=== PATIENT | male | born 1950 | race Caucasian/White ===

== ENCOUNTER 2016-12-09 17:15 | Emergency (ER) | payer OTHER ==
[~2016-12-09] VITALS: Ht 182.9 cm; Wt 100.0 kg
[2016-12-09 17:21] VITALS: BP 104/52; PULSE 73; RESP 19; O2SAT 95
[2016-12-09] MEDS ORDERED: RANI300C PO (17:27)
[2016-12-09] MEDS ORDERED: LORA10CA PO (17:27)
[2016-12-09] MEDS ORDERED: ASPI325T32 PO (17:27)
[2016-12-09] MEDS ORDERED: CARV25TA2 PO (17:27)
[2016-12-09] MEDS ORDERED: DICY20TA10 PO (17:27)
[2016-12-09] MEDS ORDERED: LISI-567 PO (17:27)
[2016-12-09] MEDS ORDERED: ESOM40CA41 PO (17:27)
[2016-12-09] MEDS ORDERED: PRV40T PO (17:27)
[2016-12-09] MEDS ORDERED: ALBU8.5H2 INHALATION (17:27)
[2016-12-09] MEDS ORDERED: HYOS0.1216 PO (17:27)
[2016-12-09] MEDS ORDERED: MONT10TA20 PO (17:27)
[2016-12-09] MEDS ORDERED: BUPR150T12 PO (17:27)
--- NOTE | 2016-12-09 17:32 | ED.REPORT ---
HPI-General Illness Date of Service December 09, 2016 ED Provider: Claude Young MD 66 y/o male with a hx of HTN and hyperlipidemia presents to the complaining of dizziness, onset 3 hours ago. The pt believes he may have doubled up on his BP medication. Typically, he takes his medication twice a day. He could not remember if he had taken his first dose so he took another dose a couple of hours after the second dose, which is when his sx began. The pt states he got up to get mail when he started feeling lightheaded and experienced blurry vision. He put his hands on the jaquez and fell to his knees. He recorded his BP at 78/42 and at 80/52 a few minutes later.The pt states he still feels "sluggish " and will fill dizzy and lightheaded if he were to stand up. He denies nausea, vomiting and change in appetite. As per the , he also had slurred and slow speech 3 hours ago, which has improved but not resolved. The pt states his normal BP range is 100/60 - 104/64 Nursing Notes Stated Complaint: POSS TAKEN BP MEDS 2X,LOWER BLOOD PRESSURE Chief Complaint: Substance Abuse Nursing Notes Reviewed: Yes ([employer], meds reconciled (but the overdosed med not listed/named)) Allergies: Coded Allergies: Penicillins (Verified Allergy, Severe, 12/09/16) propoxyphene (Verified Allergy, Unknown, 12/09/16) Scheduled Albuterol HFA (Proair HFA) 8.5 Gm Hfa.aer.ad 2 PUFFS INHALATION Q4H Aspirin (Aspirin) 325 Mg Tablet 325 MG PO DAILY Bupropion ER (Bupropion ER) 150 Mg Tablet.er 150 MG PO BID Carvedilol (Carvedilol) 25 Mg Tablet 25 MG PO BID Esomeprazole Magnesium (Nexium) 40 Mg Capsule.dr 40 MG PO DAILY Hyoscyamine (Hyoscyamine) 0.125 Mg Tablet 0.125 MG PO TID Lisinopril (Lisinopril) 20 Mg Tablet 20 MG PO BID Loratadine (Claritin) 10 Mg Capsule 10 MG PO DAILY Montelukast (Singulair) 10 Mg Tablet 10 MG PO HS Pravastatin (Pravachol) 40 Mg Tablet 40 MG PO HS Ranitidine (Ranitidine) 300 Mg Capsule 300 MG PO DAILY Scheduled PRN Dicyclomine (Dicyclomine) 20 Mg Tablet 20 MG PO TID PRN PRN For GI Cramps General Time Seen by MD: 17:27 Chief Complaint Dizziness Hx Obtained From: Patient Arrived By: Walk-in Sudden in Onset?: Yes Onset Occurred: 1 - 4 hours ago Severity: Current: No pain currently Severity: Maximum: No pain Recent Healthcare: No recent doctor visit Similar Sx Previous: No Past Medical History Past Medical History Coxsackie virus induced cardiomyopathy, 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 Physical Exam Vital Signs Vital Signs Date Time Temp Pulse Resp B/P Pulse Ox O2 Delivery O2 Flow Rate FiO2 12/09/16 19:14 79 91/54 98 Room Air 12/09/16 19:13 69 99/60 96 Room Air 12/09/16 18:30 65 20 96/53 95 Room Air 12/09/16 17:21 36.8 73 19 104/52 95 Room Air Initial VS: Reviewed, Vital signs normal (BP low normal) Head / Eyes: Atraumatic, Normocephalic Neck: Supple, Non-tender, Full range of motion Respiratory: Breath sounds normal, Clear to auscultation, No respiratory distress Cardiovascular: Regular rate & rhythm, Heart sounds normal, Intact distal pulses Abdomen / GI: Soft, Non-tender Extremities: Vascular intact, Neuro intact, No swelling, No tenderness Skin: Warm, Dry, No cyanosis General/Constitutional: Awake, Alert, No acute distress, Cooperative Orthostatic. Back: Atraumatic, Full range of motion Upper Extremities Upper Extremity / MS: Atraumatic, Full range of motion Lower Extremity / Pelvis / MS: Atraumatic, Full range of motion Neurologic: Oriented X3, Speech NL (I don't appreciate slurred speech), No motor deficits, No sensory deficits Interpretation & Diagnostics Lab Results Interpretation Result Diagram: 12/09/16 1745 12/09/16 1745 Test 12/09/16 17:45 White Blood Count 9.0th/mm3 (3.8-10.1) Red Blood Count 5.02mil/mm3 (4.40-5.80) Hemoglobin 13.9g/dL (13.8-17.2) Hematocrit 38.7% (41.0-50.0) Mean Corpuscular Volume 77.1fL (81-100) Mean Corpuscular Hemoglobin 27.7pg (27.0-35.0) Mean Corpuscular Hemoglobin Concent 35.9% (32.0-37.0) Red Cell Distribution Width 14.0% (12.3-15.4) Platelet Count 295bil/L (150-400) Neutrophils (%) (Auto) 55.8% (40-74) Lymphocytes (%) (Auto) 29.3% (14-46) Monocytes (%) (Auto) 8.7% (4-12) Eosinophils (%) (Auto) 5.3% (0-5) Basophils (%) (Auto) 0.6% (0-3) Hold Urine Received (Received) Sodium Level 139mEq/L (134-144) Potassium Level 4.1mEq/L (3.5-5.2) Chloride Level 101mEq/L (97-108) Carbon Dioxide Level 24mmol/L (18-29) Blood Urea Nitrogen 22mg/dL (8-27) Creatinine 0.86mg/dL (0.76-1.27) Estimat Glomerular Filtration Rate 95mL/min (>59) Glucose Level 123mg/dL (60-99) Calcium Level 8.8mg/dL (8.5-10.1) Total Bilirubin 0.3mg/dL (0.0-1.2) Aspartate Amino Transf (AST/SGOT) 22U/L (0-50) Alanine Aminotransferase (ALT/SGPT) 18U/L (0-44) Alkaline Phosphatase 97U/L (25-160) Total Protein 6.7g/dL (6.4-8.4) Albumin 4.0g/dL (3.4-5.0) Lab Results Interpretation: CBC normal CMP normal ECG Interpretation ECG Interpretation: Normal sinus rhtyhm. Rate 69. Right bundle branch block. No bradycardia Mild 1st degree heart block No acute ischemic or arrhythmic changes Non-specific T wave abnormalities in the lateral leads. Time: 17:45 Interpreted by: ED physician Re-Eval/Medical Decision Med Decision/Clinical Course This is a 66-year-old male with a history of a viral myocardiopathy he was on carvedilol and lisinopril at baseline, but reports he accidentally forgot that he taken his morning medicine and took a second round. Then a few hours later when he tried to get up to answer the mailman, he felt dizzy and lightheaded at which point he noted his blood pressure at home and it was in the 70s. He had no other symptoms and as long as he laid down he felt okay, decided she should come in and get checked out. He appears well and lying down he reports he has no complaints. But he does say he still feels lightheaded if he tries to stand up. His normal blood pressures only the 100-120 to stop range. He is currently a systolic 104. There was has a normal exam. Denies any fever, any history of GI bleed, a new medication changes, and reports this was purely accidental that he forgot that he taken his medicines and he takes it with his and so they took her medicines together and as when he realized he done it twice. The patient received a gentle bolus of fluids and was observed. Symptoms are resolved. His ulnar orthostatic and feels well. She is being discharged home. Screening labs are normal. The patient will hold off on this evening's dose of a blood pressure medications , and the plan is to check his blood pressure in the morning prior to taking tomorrow's dose. The blood pressure is normal and he feels well he can take his medicines routinely and restart them normally. He is discharged in much improved condition in the company of his . Source of Hx: Old records Patient Status: Condition improved Differential Diagnosis: Negative: Abdominal pain, Abscess, Acute coronary syndrome, Diabetes mellitus, Drug dependence, Hematoma, Neutropenia, Pneumonia, Syncope Counseled Regarding: Diagnosis, Lab results, Need for follow-up, When/why to return to ED Discharge & Departure Primary Impression: Accidental overdose Encounter type: initial encounter Qualified Code: T50.901A - Poisoning by unspecified drugs, medicaments and biological substances, accidental ( unintentional), initial encounter Disposition: Home Discharge Condition All VS Reviewed: Yes Referrals: Ed Hansen DO (PCP) Scribe Attestation Portions of this note were transcribed by Gagan Davey. I, , personally performed the history, physical exam and medical decision-making;I reviewed and confirmed the accuracy of the information in the transcribed note. Signed by Elisha Wellington. 12/09/16 1801 copies to: Ed Hansen Matthew F MD December 09, 2016 17:32 Gagan Davey December 09, 2016 17:35
[2016-12-09] MEDS ORDERED: 0.9% Sodium Chloride 1,000 ML IV ONE (17:35)
[2016-12-09] MEDS ORDERED: 0.9% Sodium Chloride 500 ML IV ONE (17:50)
[2016-12-09 17:55] LABS: BASOPHILS % (AUTO) 0.6 % (0-3); EOSINOPHILS % (AUTO) 5.3 % (0-5); MONOCYTES % (AUTO) 8.7 % (4-12); Mean Corpuscular Hemoglobin 27.7 pg (27.0-35.0); Mean Corpuscular Volume 77.1 fL (81-100); NEUTROPHILS % (AUTO) 55.8 % (40-74); Platelet Count 295 bil/L (150-400)
[2016-12-09 18:30] VITALS: BP 96/53; PULSE 65; RESP 20; O2SAT 95
[2016-12-09 19:13] VITALS: BP 99/60; PULSE 69; O2SAT 96
[2016-12-09 19:14] VITALS: BP 91/54; PULSE 79; O2SAT 98
[2016-12-09 20:12] VITALS: BP 110/56; RESP 16; O2SAT 67
== END 2016-12-09 20:06 | disposition home or self-care (01) ==
LOC: SED 17:15
DX: T44.7X1A Poisoning by beta-adrenoreceptor antagonists, accidental (unintentional), initial encounter (principal); T46.4X1A Poisoning by angiotensin-converting-enzyme inhibitors, accidental (unintentional), initial encounter; Y93.89 Activity, other specified; Y92.89 Other specified places as the place of occurrence of the external cause; Y99.8 Other external cause status; I10 Essential (primary) hypertension; E78.5 Hyperlipidemia, unspecified; Z79.82 Long term (current) use of aspirin; Z88.2 Allergy status to sulfonamides; Z88.5 Allergy status to narcotic agent
CPT/HCPCS: 36415; 80053; 85025; 93005; 99284; J7040